=== PATIENT | female | born 1985 | race Caucasian/White ===

== ENCOUNTER 2022-06-08 09:44 | Inpatient (IN) | payer OTHER ==
[~2022-06-08] VITALS: Ht 165.1 cm; Wt 81.6 kg
[2022-06-08] MEDS ORDERED: DEXT 5%/LR + PITOCIN 20UNITS/L 1,000 ML IV SCH (11:30)
[2022-06-08 11:34] LABS: BASOPHILS % 0.1 % (0.0-2.0); CHLORIDE 103 mEq/L (98-107); EOSINOPHILS % 0.1 % (0.0-5.0); HEMOGLOBIN. 13.1 g/dL (12.0-16.0); LYMPHOCYTES % 10.7 % (20.0-50.0); MEAN CORPUSCULAR HEMOGLOBIN 30.4 pg (28.0-32.0); MEAN CORPUSCULAR VOLUME 90.8 fL (81.0-99.0); MEAN PLATELET VOLUME 8.4 fl (7.4-10.4); MONOCYTES % 5.5 % (2.0-8.0); NEUTROPHILS % 83.6 % (40.0-76.0); PLATELET 287 x1000/uL (130-400); RED BLOOD CELL COUNT 4.29 mill/uL (4.2-5.4); RED CELL DISTRIBUTION WIDTH 13.5 % (11.6-14.6)
[2022-06-08 11:41] LABS: INR 0.9; PROTHROMBIN TIME 10.2 sec (9.6-11.0)
[2022-06-08] MEDS ORDERED: OXYTOCIN 30 UNITS/500ML NS PMX 500 ML IV SCH (12:45)
[2022-06-08] MEDS ORDERED: ONDANSETRON HCL 4MG/2ML INJ IV ONE (19:30)
[2022-06-09 02:40] VITALS: BP 108/65
[2022-06-09 02:53] VITALS: BP 108/65
[2022-06-09] MEDS: MISOPROSTOL 200MCG TABLET RC SCH ×3 (03:11→08:28)
[2022-06-09] MEDS ORDERED: MISOPROSTOL 200MCG TABLET RC SCH (07:00)
[2022-06-09 08:00] VITALS: BP 103/63
[2022-06-09] MEDS ORDERED: HYDROCODONE/ACETAMINOPHEN 5/325MG TABLET PO PRN (11:00)
[2022-06-09 12:00] VITALS: BP 99/60
[2022-06-09] MEDS ORDERED: CEFAZOLIN 1000MG PREMIX 50 ML IV NR (12:00)
[2022-06-09 16:00] VITALS: BP 101/61
[2022-06-09 17:55] VITALS: BP 102/60
== END 2022-06-09 18:33 | disposition home or self-care (01) | DRG 779 ==
LOC: ER 09:44 → MICUSO 13:24 → EDBEDREQTM 13:28 → EDBEDREQ 13:28 → 8WST 06-09 02:39
PROVIDERS: ADMIT Obstetrics & Gynecology; ATTEND Obstetrics & Gynecology
DX: O03.4 Incomplete spontaneous abortion without complication (principal); Z20.822 Contact with and (suspected) exposure to COVID-19
CPT/HCPCS: 36415; 80053; 85025; 86850; 86900; 87426; 88307; 88309; 99291; J0690; J2405; J2590